=== PATIENT | male | born 1985 | race Caucasian/White ===

== ENCOUNTER 2017-04-12 19:16 | Emergency (ER) | payer BC ==
[2017-04-12 19:22] VITALS: RESP 18; TEMP 97.9
--- NOTE | 2017-04-12 19:58 | EDPHY ---
H & P Stated Complaint: fell rock climbing hitting R hand, thinks may have fx in hand Time Seen by Provider: 04/12/17 19:27 HPI/ROS: CHIEF COMPLAINT: Right hand injury HISTORY OF PRESENT ILLNESS: The patient is a 31 y/o male complaining of right hand pain secondary to a fall while rock climbing this evening. He isn't exactly sure how he fell, but he thinks his right hand got stuck in the carabiner as he was clipping in and also hit the rock wall on his fall down. Immediate onset of moderate hand, gradually increasing pain since. He denies other injuries, head strike, midline neck pain, and weakness or numbness in his hand. He is normally healthy. - Personal History Current Tetanus Diphtheria and Acellular Pertussis (TDAP): Unsure - Medical/Surgical History PMH: Denies Hx Asthma: No Hx Chronic Respiratory Disease: No Hx Diabetes: No Hx Cardiac Disease: No Hx Renal Disease: No Hx Cirrhosis: No Hx Alcoholism: No Hx HIV/AIDS: No Hx Splenectomy or Spleen Trauma: No Other PMH: none - Social History Smoking Status: Never smoked Additional Social History: Nonsmoker. - Physical Exam Exam: General Appearance: Alert, pleasant Cardiovascular: Normal capillary refill Neurological: A&O, motor/sensory intact Skin: Warm and dry, no abrasion/laceration Extremities: Right hand has tenderness and swelling over right 5th metacarpal with small overlying superficial abrasion, no crepitus or laceration; no tenderness over the other metacarpals, digits or wrist Constitutional: Initial Vital Signs Temperature (C) 36.6 C 04/12/17 19:19 Heart Rate 70 04/12/17 19:19 Respiratory Rate 18 04/12/17 19:19 Blood Pressure 138/81 H 04/12/17 19:19 O2 Sat (%) 95 04/12/17 19:19 O2 Delivery Mode Room Air Allergies/Adverse Reactions: No Known Allergies Allergy (Unverified 04/12/17 19:22) Home Medications: Medication Instructions Recorded NK [No Known Home Meds] 04/12/17 Medical Decision Making - Diagnostics Imaging: I viewed and interpreted images myself ED Course/Re-evaluation: This is a healthy 31 y/o male who presents with a right hand injury secondary to a fall while climbing tonight. He has tenderness, swelling, and a small abrasion over his 5th metacarpal. He is neurovascularly intact. Right hand x- ray confirms midshaft 5th metacarpal fracture and distal 4th metacarpal fracture. Plan for wound care and volar splint. Reassessed patient and splint placement. The Orthoglass ulnar gutter splint was adequately immobilizing the joint and distal to the splint the patient's circulation and sensation was intact. He will be discharged with standard fracture care and follow up instructions with hand surgery. Return precautions discussed. He is comfortable with plan for discharge. Differential Diagnosis: Differential diagnosis includes though it is not limited to open fracture, dislocation, tendon disruption, neurovascular compromise. Departure - Departure Disposition: Home, Routine, Self-Care Clinical Impression: Closed fracture of 5th metacarpal Qualifiers: Encounter type: initial encounter Metacarpal location: shaft Fracture alignment : displaced Laterality: right Qualified Code(s): S62.326A - Displaced fracture of shaft of fifth metacarpal bone, right hand, initial encounter for closed fracture Fracture of fourth metacarpal bone Qualifiers: Encounter type: initial encounter Fracture type: closed Metacarpal location: neck Fracture alignment: displaced Laterality: right Qualified Code(s): S62.334A - Displaced fracture of neck of fourth metacarpal bone, right hand, initial encounter for closed fracture Condition: Good Instructions: Hand Fracture (ED) Additional Instructions: 1. Keep splint dry and in place until cleared by orthopedist. 2. Take 800mg ibuprofen every 6-8 hours as needed for pain and swelling for the next couple days. 3. Apply ice to sore areas intermittently over the first 24-48 hours. Elevate when possible. 4. Follow up with hand specialist tomorrow. I recommend calling first thing in the morning to schedule an appointment. Tell them you were seen in the ED for metacarpal fractures. 5. Return to the ED for severe pain, weakness or numbness in your hand, or other worsening of condition. Referrals: Peter Montiel MD [Medical Doctor] - As per Instructions Report Scribed for: Estelle Marinelli Report Scribed by: Adriana Wilkinson Date of Report: 04/12/17 Time of Report: 19:52 Physician Review and Approval Statement: 04/12/17 19:57 Portions of this note were transcribed by a biomedical photographer. I personally performed a history, physical exam, medical decision making, and confirmed accuracy of information the transcribed note.
[2017-04-12 21:10] VITALS: BP 136/82; PULSE 62; O2SAT 96
== END 2017-04-12 21:09 | disposition home or self-care (01) ==
DX: S62.326A Displaced fracture of shaft of fifth metacarpal bone, right hand, initial encounter for closed fracture (principal); S62.334A Displaced fracture of neck of fourth metacarpal bone, right hand, initial encounter for closed fracture; W18.39XA Other fall on same level, initial encounter; Y99.8 Other external cause status; Y93.31 Activity, mountain climbing, rock climbing and wall climbing